=== PATIENT | female | born 1955 | race Caucasian/White ===

== ENCOUNTER → 2021-07-08 | Day surgery (SDC) | payer OTHER ==
[~2021-07-08] VITALS: Ht 162.6 cm; Wt 68.0 kg
[~2021-07-08] MED LIST: IV RINGERS,LACTATED 1000ML 1,000 ML IV SCH; PROG100C10 PO; PROPOFOL 10 MG/ML (20ML) VIAL. IV ONE
[2021-07-08 06:46] VITALS: BP 138/81
--- NOTE | 2021-07-08 07:35 | PDOC2 ---
CONSULT Date of Consult Date of Consult DATE: 07/08/21 TIME: 07:32 Reason for Consult Reason for Consult: CRC screening Identification/Chief Complaint Chief Complaint 65 yo Female seen with above. She has daily bowel movements without diarrhea or constipation Weight and appetite are stable. No melena and/or hematochezia is noted. Family history is unrevealing for colon cancer and/or polyps. No prior screening procedures have been performed. She otherwise is without additional complaints. Past Surgical History Past Surgical History: Breast Biopsy Family History Family History: No Significant Social History No ALCOHOL: social Current Medications Current Medications Current Medications Ringer's Solution 1,000 ml @ 50 mls/hr Q20H IV Last administered on 07/08/21at 07:01; Start 07/08/21 at 07:00; Stop 07/08/21 at 18:59 Propofol (Diprivan) 200 mg STK-MED ONCE IV ; Start 07/08/21 at 06:23; Stop 07/08/21 at 06:24; Status DC Active Scripts Active Reported Progesterone (Progesterone,Micronized) 100 Mg Capsule 1 Cap PO QHS 30 Days Allergies Allergies: Coded Allergies: No Known Drug Allergies (Unverified , 07/08/21) Physical Exam General: Alert, Oriented X3 Lungs: Clear to auscultation Heart: Normal S1, Normal S2 Abdomen: Normal bowel sounds, Soft, No tenderness Vitals VITALS Vital Signs Date Time Temp Pulse Resp B/P (MAP) Pulse Ox O2 Delivery O2 Flow Rate FiO2 07/08/21 06:46 98.1 82 20 95 98.1 Assessment/Plan Assessment/Plan Colorectal cancer screening- is recommended at this time. R/B discussed with patient who is willing to proceed. INEZ THOMPSON MD Jul 08, 2021 07:35
[2021-07-08 08:03] VITALS: BP 120/75
--- NOTE | 2021-07-13 11:24 | PATHOLOGY ---
[facility] Accession Number: [id number] . 01 Material submitted: . colon - DESCENDING COLON POLYP BIOPSY. Modifiers: descending . 01 Clinical history: . COLONOSCOPY . 02 Diagnosis: Large bowel "descending colon polyp biopsy": - Tubular adenoma; negative for high-grade dysplasia and malignancy. (MLK:analia; 07/12/2021) QMS 07/12/2021 0850 Local . 02 Electronically signed: . Blake Tian MD, Pathologist NPI- [id number] . 01 Gross description: . The specimen is received in formalin, labeled "Valorie Gonzales, descending colon polyp" and consists of a luna irregular tissue measuring 0.4 x 0.3 x 0.2 cm. The surgical margin is inked green and the specimen is bisected and submitted entirely in one cassette.([facility]; 07/08/2021) DKA/DKA 07/12/2021 0839 Local . 02 Pathologist provided ICD-10: D12.4 . 02 CPT . 793745 Specimen Comment: A courtesy copy of this report has been sent to [phone] Specimen Comment: Report sent to Specimen Comment: A duplicate report has been generated due to demographic updates. Performed at: 01 [facility] [address], [place], [place] [id number] MD Paul Stephens MD Phone: [phone] Performed at: 02 [facility] [address], [place] [id number] MD Gilberto Peterson MD Phone: [phone]
== END | disposition home or self-care (01) ==
LOC: ENDOS 06:27
PROVIDERS: ATTEND Internal Medicine Gastroenterology
DX: Z12.11 Encounter for screening for malignant neoplasm of colon (principal); K64.0 First degree hemorrhoids; K63.89 Other specified diseases of intestine; D12.4 Benign neoplasm of descending colon; Z79.899 Other long term (current) drug therapy; Z98.890 Other specified postprocedural states
CPT/HCPCS: 45380; J2704; 88305